=== PATIENT | female | born 1965 | race Caucasian/White ===

== ENCOUNTER 2024-08-05 11:19 | Emergency (ER) | payer OTHER ==
[~2024-08-05] VITALS: Ht 152.4 cm; Wt 49.4 kg
[2024-08-05 11:20] VITALS: BP 120/75; TEMP 98.4
[2024-08-05 12:08] VITALS: O2SAT 98
== END 2024-08-05 12:11 | disposition home or self-care (01) ==
LOC: ER 11:32
DX: J02.9 Acute pharyngitis, unspecified (principal); Z94.0 Kidney transplant status